=== PATIENT | female | born 1950 | race Caucasian/White ===

== ENCOUNTER → 2016-09-05 | Outpatient (CLI) | payer OTHER ==
--- NOTE | 2016-09-06 13:04 | PCVCIMAG ---
APPROVED REPORT Study performed: 09/05/2016 16:12:09 EXAM: Comprehensive 2D, Doppler, and color-flow Echocardiogram Status: routine Other Information Study Quality: Adequate Indications Hypertension/HDD Hyperlipidemia 2D Dimensions IVSd: 9.24 (7-11mm)LVOT Diam: 19.43 (18-24mm) LVDd: 39.64 mm LVPWs: 26.35 mm PWd: 7.93 (7-11mm)Ascending Ao: 28.57 (22-36mm) LVDs: 28.43 (25-40mm) Left Atrium: 25.49 (27-40mm) Aortic Root: 27.04 mm Schuster's LVEF: 55.20 % Volumes Left Atrial Volume (Systole) Single Plane 4CH: 14.97 mLSingle Plane 2CH: 25.74 mL Aortic Valve AoV Peak Tk.: 1.59 m/s AO Peak Gr.: 10.13 mmHgLVOT Max P.00 mmHg AO Mean Gr.: 6.02 mmHgLVOT Mean P.30 mmHg AO V2 Mean: 1.17 m/sLVOT Max V: 0.97 m/s AO V2 VTI: 34.02 cmLVOT Mean V: 0.73 m/s LUCÍA (VTI): 1.83 [id number] V1 VTI: 20.96 cm LUCÍA Vmax: 1.81 cm2 SV (LVOT): 62.09 mL Mitral Valve E/A Ratio: 0.9 MV Decel. Time: 230.75 ms MV E Max Tk.: 0.86 m/s MV A Tk.: 0.91 m/s IVRT: 114.19 ms TDI E/Medial E': 0.09 E': 8.00Medial E' Tk.: 10.00 m/s Pulmonary Vein P Vein S: 0.46 m/sP Vein A: 0.37 m/s P Vein D: 0.37 m/sP Vein A Dur.: 96.9 msec P Vein S/D Ratio: 1.24 Tricuspid Valve TR Peak Tk.: 2.41 m/s TR Peak Gr.: 23.15 mmHg Left Ventricle The left ventricle is normal size. There is normal LV segmental wall motion. There is normal left ventricular wall thickness. Left ventricular systolic function is normal. The left ventricular ejection fraction is within the normal range. LVEF is 65%. The left ventricular diastolic function is normal. Right Ventricle The right ventricle is normal size. The right ventricular systolic function is normal. Atria The left atrium size is normal. The right atrium size is normal. Aortic Valve The aortic valve is normal in structure. No aortic regurgitation is present. There is no aortic valvular stenosis. Mitral Valve The mitral valve is normal in structure. There is no mitral valve regurgitation noted. No evidence of mitral valve stenosis. Tricuspid Valve The tricuspid valve is normal in structure. Trace to mild tricuspid regurgitation. Pulmonary artery pressure is 31mmgh. Pulmonic Valve The pulmonary valve is normal in structure. There is no pulmonic valvular regurgitation. Great Vessels The aortic root is normal in size. IVC is normal in size and collapses with >50% inspiration Pericardium There is no pericardial effusion. <Conclusion> The left ventricle is normal size. There is normal left ventricular wall thickness. Left ventricular systolic function is normal. The left ventricular ejection fraction is within the normal range. LVEF is 65%. The left ventricular diastolic function is normal. The left atrium size is normal. The right atrium size is normal. The aortic valve is normal in structure. There is no mitral valve regurgitation noted. Trace to mild tricuspid regurgitation. Pulmonary artery pressure is 31mmgh. There is no pericardial effusion.
== END | disposition home or self-care (01) ==
LOC: PCVCIMAG 15:51
PROVIDERS: ATTEND Internal Medicine Cardiovascular Disease
DX: I08.2 Rheumatic disorders of both aortic and tricuspid valves (principal); I10 Essential (primary) hypertension; J45.909 Unspecified asthma, uncomplicated; Z90.710 Acquired absence of both cervix and uterus; Z98.51 Tubal ligation status; Z79.899 Other long term (current) drug therapy
CPT/HCPCS: 80061; 93005; 93306; G0463

== ENCOUNTER → 2017-09-23 | Outpatient (CLI) | payer OTHER | END | disposition home or self-care (01) | LOC: PCVCCLINIC 11:40 | DX: E78.00 Pure hypercholesterolemia, unspecified (principal); I10 Essential (primary) hypertension; I35.0 Nonrheumatic aortic (valve) stenosis; Z82.49 Family history of ischemic heart disease and other diseases of the circulatory system; Z79.899 Other long term (current) drug therapy | CPT/HCPCS: 80061; 93005; G0463 ==